=== PATIENT | male | born 1945 | race Caucasian/White ===

== ENCOUNTER → 2020-01-25 | Day surgery (SDC) | payer MEDICARE, OTHER ==
[~2020-01-25] MED LIST: ACETAMINOPHEN 325 MG TABLET PO PRN; ALBUTEROL SULFATE 2.5 MG/3 ML NEBU. NEB PRN; ASPI-630 PO; ATROPINE 0.5 MG/5 ML DISP.SYRIN. IV PRN; CHLO25TA9 PO; FINA5TAB4 PO; GABA-586 PO; GLIP2.5T4 PO; IV RINGERS SOLUTION,LACTATED 1,000 ML IV SCH; MELO15TA23 PO; METF10007 PO; METO-239 PO; METOPROLOL TARTRATE 5 MG/5 ML VIAL. IV ONE; OMEP20TA8 PO; ONDANSETRON PF 4 MG/2 ML VIAL. IV PRN; OXYB10TA7 PO; PHENOL ORAL SPRAY 177ML BOTTLE. MM PRN; PROPOFOL 40 ML IV ONE; SIMV40TA PO; TELM80TA PO; diphenhydrAMINE 50 MG/ML VIAL IV PRN
[2020-01-25 15:05] VITALS: BP 128/60
== END ==
LOC: SURG 12:12
PROVIDERS: ATTEND Emergency Medicine
DX: Z12.11 Encounter for screening for malignant neoplasm of colon (principal); K57.30 Diverticulosis of large intestine without perforation or abscess without bleeding; I10 Essential (primary) hypertension; E11.9 Type 2 diabetes mellitus without complications; Z85.038 Personal history of other malignant neoplasm of large intestine; Z98.0 Intestinal bypass and anastomosis status; Z79.82 Long term (current) use of aspirin; Z87.39 Personal history of other diseases of the musculoskeletal system and connective tissue; Z79.84 Long term (current) use of oral hypoglycemic drugs; Z86.73 Personal history of transient ischemic attack (TIA), and cerebral infarction without residual deficits; Z90.49 Acquired absence of other specified parts of digestive tract; Z98.890 Other specified postprocedural states; Z87.891 Personal history of nicotine dependence; Z72.89 Other problems related to lifestyle
CPT/HCPCS: 82947; G0105; J2704; J7120; 45378; 45388

== ENCOUNTER → 2021-09-21 | Outpatient (CLI) | payer MEDICARE, OTHER ==
[2020-01-25 15:05] VITALS: BP 128/60
[~2021-09-21] MED LIST changes: -ACETAMINOPHEN 325 MG TABLET PO PRN; -ALBUTEROL SULFATE 2.5 MG/3 ML NEBU. NEB PRN; -ATROPINE 0.5 MG/5 ML DISP.SYRIN. IV PRN; -IV RINGERS SOLUTION,LACTATED 1,000 ML IV SCH; -METOPROLOL TARTRATE 5 MG/5 ML VIAL. IV ONE; -ONDANSETRON PF 4 MG/2 ML VIAL. IV PRN; -PHENOL ORAL SPRAY 177ML BOTTLE. MM PRN; -PROPOFOL 40 ML IV ONE; -diphenhydrAMINE 50 MG/ML VIAL IV PRN
--- NOTE | 2021-09-21 11:50 | RAD ---
Single view of the chest. 09/21/2021 9:46 AM Indication: Reason: COUGH X 2 WEEKS / Spl. Instructions: / History: Comparison: None Findings: There is no focal consolidation. There is no pleural effusion or pneumothorax. The cardiome diastinal silhouette and pulmonary vasculature are within normal limits. No acute osseous abnormaliti es are seen. Impression: No evidence of acute cardiopulmonary process. Electronically signed by: Bertrand Jeffers MD (09/21/2021 11:47 AM) [id number]
== END ==
LOC: RAD 09:29
PROVIDERS: ATTEND Internal Medicine
DX: R05.9 Cough, unspecified (principal)
CPT/HCPCS: 71046